=== PATIENT | male | born 1965 | race Caucasian/White ===

== ENCOUNTER 2019-04-06 15:23 | Emergency (ER) | payer OTHER, MEDICAID ==
[~2019-04-06] VITALS: Ht 172.7 cm; Wt 68.0 kg
[2019-04-06] MEDS ORDERED: BACITRACIN ZINC OINT UDPKT TOP ONE (16:00)
[2019-04-06 16:13] VITALS: BP 110/66
== END 2019-04-06 16:00 | disposition home or self-care (01) ==
LOC: ER 15:23
DX: S20.119A Abrasion of breast, unspecified breast, initial encounter (principal); Y35.891A Legal intervention involving other specified means, law enforcement official injured, initial encounter; Y93.89 Activity, other specified; Y92.89 Other specified places as the place of occurrence of the external cause; Y99.8 Other external cause status
CPT/HCPCS: 99283